=== PATIENT | male | born 1955 | race Asian ===

== ENCOUNTER 2019-12-21 07:23 | Day surgery (SDC) | payer OTHER ==
[~2019-12-21 07:23] MED LIST: CYCLOPENTOLATE 1% OPHTH DROPS 2 ML ONE; KETOROLAC 0.45% OPHTH DROPS ONE; PHENYLEPHRINE 2.5% OPHTH 2 ML DROPS ONE; PROPARACAINE 0.5% OPHTH DROPS 15 ML ONE
[2019-12-21] MEDS ORDERED: MIDAZOLAM 2 MG/2 ML VIAL IVP ONE (07:24)
[2019-12-21] MEDS ORDERED: TRIAMCIN/MOXIFLOX OPHTHALMIC 0.6 ML VIAL IO ONE (07:46)
[2019-12-21] MEDS ORDERED: BSS/LIDOCAINE/EPINEPHRINE 1 ML SYRINGE ONE (07:46)
[2019-12-21] MEDS ORDERED: TIMOLOL 0.5% OPHTH DROPS ONE (07:46)
[2019-12-21] MEDS ORDERED: BRIMONIDINE 0.2% OPHTH DROPS 5 ML ONE (07:46)
[2019-12-21] MEDS ORDERED: VANCOMYCIN OPHTHALMI 8MG/0.8ML 8 MG/0.8 ML SYRINGE IO ONE (07:47)
[2019-12-21] MEDS ORDERED: LACTATED RINGERS 500 ML IV ONE (08:24)
[2019-12-21] MEDS ORDERED: KETOROLAC 0.45% OPHTH DROPS LEFTEYE ONE (08:32)
[2019-12-21] MEDS ORDERED: PROPARACAINE 0.5% OPHTH DROPS 15 ML LEFTEYE ONE ×2 (08:33→09:15)
[2019-12-21] MEDS ORDERED: PHENYLEPHRINE 2.5% OPHTH 2 ML DROPS LEFTEYE ONE (08:33)
[2019-12-21] MEDS ORDERED: CYCLOPENTOLATE 1% OPHTH DROPS 2 ML LEFTEYE ONE (08:33)
--- NOTE | 2019-12-21 08:54 | ANESTHESIA ---
Pre-Anesthesia VS, & Labs - Diagnosis Left eye senile combined cataract - Procedure Left eye cataract extraction with IOL implant Vital Signs: Temp Pulse Resp BP Pulse Ox 36.4 C L 82 16 133/96 H 96 12/21/19 08:26 12/21/19 08:26 12/21/19 08:26 12/21/19 08:26 12/21/19 08:26 Height 6 ft Weight (kg) 96.8 kg - NPO >8 hours Home Medications and Allergies Home Medications: Ambulatory Orders Losartan [Cozaar] 50 mg PO DAILY 12/20/19 Simvastatin [Zocor] 10 mg PO DAILY 12/20/19 amLODIPine [Norvasc] 5 mg PO DAILY 12/20/19 Losartan [Cozaar] 50 mg PO DAILY 12/20/19 Simvastatin [Zocor] 10 mg PO DAILY 12/20/19 amLODIPine [Norvasc] 5 mg PO DAILY 12/20/19 Allergies/Adverse Reactions: Allergies Allergy/AdvReac Type Severity Reaction Status Date / Time No Known Drug Allergies Allergy Verified 12/20/19 12:55 Anes History & Medical History - Anesthetic History Anesthesia Complications: reports: No previous complications - Medical History Cardiovascular: reports: Hypertension, High cholesterol Pulmonary: reports: Asthma (Last use was over 1 year ago) Gastrointestinal: reports: None Urinary: reports: None Neuro: reports: None Musculoskeletal: reports: Gout Endocrine/Autoimmune: reports: None Blood Disorders: reports: None Skin: reports: None Smoking Status: Former smoker (quit 1990) Psychosocial: reports: Alcohol (Regularly drinks beer) - Surgical History General: Colonoscopy Orthopedic: Other Exam General: Alert, Oriented x3, Cooperative, No acute distress Dental: WNL Mouth Openin Fingerbreadth Neck Mobility: Normal Mallampati classification: I Thyromental Distance: greater than 6 cm Respiratory: Lungs clear, Normal breath sounds, No respiratory distress, No accessory muscle use Cardiovascular: Regular rate, Normal S1, Normal S2, No murmurs Mental/Cognitive Status: Alert/Oriented X3, Normal for patient Plan Anesthesia Type: MAC Consent for Procedure(s) Verified and Reviewed: Yes Code Status: Attempt Resuscitation ASA classification: 2-Mild systemic disease Is this case an emergency?: No
[2019-12-21] MEDS ORDERED: EPINEPHrine 1 MG/ML AMP IVP ONE (09:14)
[2019-12-21] MEDS ORDERED: CHONDR SULF/HYALURONATE SYRINGE IO ONE (09:14)
[2019-12-21] MEDS ORDERED: BSS/LIDOCAINE/EPINEPHRINE 1 ML SYRINGE IO ONE (09:14)
[2019-12-21] MEDS ORDERED: TIMOLOL 0.5% OPHTH DROPS OPTH ONE (09:14)
[2019-12-21] MEDS ORDERED: BRIMONIDINE 0.2% OPHTH DROPS 5 ML OPTH ONE (09:14)
--- NOTE | 2019-12-21 10:05 | OPERATIVE REPORT ---
DATE OF SERVICE: 12/21/2019 Physician: Jean Hill MD PREOPERATIVE DIAGNOSIS: Visually significant cataract, left eye. This was his first cataract surger y. POSTOPERATIVE DIAGNOSIS: Visually significant cataract, left eye. This was his first cataract surge ry. DESCRIPTION OF PROCEDURE: Phacoemulsification with posterior chamber intraocular lens implant, left eye. SURGEON: Jean Hill MD ANESTHESIA: Monitored anesthesia care. COMPLICATIONS: None. OPERATIVE INDICATIONS: This is a 64-year-old man with progressive vision loss in the left eye due to 2+ nuclear sclerotic, 2+ cortical and 2+ posterior subcapsular cataract. Best corrected visual acui ty was 20/30, with glare to hand motion vision in the left eye. Indications for surgery were overall decrease in vision, difficulty seeing words on a computer screen, difficulty reading, difficulty see ing words, closed caption or game scores on TV, difficulty driving in low light or at night, difficul ty driving at night because of headlights from other vehicles, difficulty with glare or bright lights in any situation, and decreased acuity with firearms. He was consented at length concerning risks a nd benefits of cataract surgery, after which he expressed a desire to proceed with surgery. OPERATIVE PROCEDURE: Patient was taken to OR #3 and placed under monitored anesthesia care. A surgi hannah timeout was conducted confirming correct patient, correct procedure, and correct surgical site. He was given topical anesthesia, then prepped and draped in the usual sterile fashion. The eye was e ntered at the 6 and 3 o'clock positions. Intracameral Shugarcaine was injected into the anterior eva mber, followed by Viscoat. A continuous-tear curvilinear capsulorrhexis was performed. The nucleus was hydrodissected and phacoemulsified. The cortex was evacuated using automated infusion and aspira tion. Provisc was injected in the capsular bag, and a 22.0 diopter intraocular lens inserted in the bag. Infusion and aspiration was used to evacuate the viscoelastic materials. The eye was inflated to physiologic pressure using balanced salt solution and found to be watertight. Approximately 0.25 mL of a mixture of triamcinolone, moxifloxacin was injected transsclerally into the vitreous in the i nferotemporal quadrant. An additional 0.55 mL of a mixture of triamcinolone, moxifloxacin and vancom ycin was injected subconjunctivally in the superior quadrant for infection and inflammation prophylax is. Wound integrity was checked with Weck-Tia sponges. Patient was taken from the operating room in good condition and given postoperative instructions. TD: 12/21/2019 09:34
[2019-12-21 10:09] VITALS: BP 116/73
== END 2019-12-21 07:24 | disposition home or self-care (01) ==
LOC: SDS 07:23
PROVIDERS: ATTEND Ophthalmology
PROC: 08RK3JZ Replacement of Left Lens with Synthetic Substitute, Percutaneous Approach (ICD-10-PCS; principal; 2019-12-21 09:30)
DX: H25.812 Combined forms of age-related cataract, left eye (principal); I10 Essential (primary) hypertension; Z79.899 Other long term (current) drug therapy; Z87.891 Personal history of nicotine dependence; Z87.09 Personal history of other diseases of the respiratory system
CPT/HCPCS: 66984; A9270; J3490; V2632

== ENCOUNTER 2020-01-18 09:10 | Day surgery (SDC) | payer OTHER ==
[~2020-01-18 09:10] MED LIST changes: +BRIMONIDINE 0.2% OPHTH DROPS 5 ML ONE; +BSS/LIDOCAINE/EPINEPHRINE 1 ML SYRINGE ONE; +TRIAMCIN/MOXIFLOX OPHTHALMIC 0.6 ML VIAL IO ONE; +VANCOMYCIN OPHTHALMI 8MG/0.8ML 8 MG/0.8 ML SYRINGE IO ONE; +timoloL maleate 0.5% OPHTH DROPS (10ML) ONE
[2020-01-18] MEDS ORDERED: fentaNYL 100 MCG/2 ML VIAL IVP ONE (09:11)
[2020-01-18] MEDS ORDERED: MIDAZOLAM 2 MG/2 ML VIAL IVP ONE (09:11)
[2020-01-18] MEDS ORDERED: PROPARACAINE 0.5% OPHTH DROPS 15 ML RIGHTEYE ONE ×2 (09:52→11:01)
[2020-01-18] MEDS ORDERED: KETOROLAC 0.45% OPHTH DROPS RIGHTEYE ONE (09:52)
[2020-01-18] MEDS ORDERED: CYCLOPENTOLATE 1% OPHTH DROPS 2 ML RIGHTEYE ONE (09:53)
[2020-01-18] MEDS ORDERED: PHENYLEPHRINE 2.5% OPHTH 2 ML DROPS RIGHTEYE ONE (09:53)
[2020-01-18] MEDS ORDERED: LACTATED RINGERS 500 ML IV ONE (10:01)
[2020-01-18] MEDS ORDERED: LACTATED RINGERS 1,000 ML IV ONE (10:01)
--- NOTE | 2020-01-18 10:04 | ANESTHESIA ---
Pre-Anesthesia VS, & Labs - Diagnosis right eye cataract - Procedure right eye cataract removal Vital Signs: Temp Pulse Resp BP Pulse Ox 36.8 C 75 18 138/83 H 100 01/18/20 09:50 01/18/20 09:50 01/18/20 09:50 01/18/20 09:50 01/18/20 09:50 Height 6 ft Weight (kg) 95 kg Home Medications and Allergies Losartan [Cozaar] 50 mg PO DAILY 12/20/19 Simvastatin [Zocor] 10 mg PO DAILY 12/20/19 amLODIPine [Norvasc] 5 mg PO DAILY 12/20/19 Allergies/Adverse Reactions: Allergies Allergy/AdvReac Type Severity Reaction Status Date / Time No Known Drug Allergies Allergy Verified 01/17/20 14:24 Anes History & Medical History - Anesthetic History Anesthesia Complications: reports: No previous complications Family history of Anesthesia Complications: Denies Family history of Malignant Hyperthermia: Denies - Medical History Cardiovascular: reports: Hypertension, High cholesterol Pulmonary: reports: Asthma (seasonal) Gastrointestinal: reports: None Urinary: reports: None Neuro: reports: None Musculoskeletal: reports: Gout Endocrine/Autoimmune: reports: None Blood Disorders: reports: None Skin: reports: None Smoking Status: Former smoker (quit 1990) Psychosocial: reports: No issues indicated - Surgical History General: Colonoscopy Eyes Ears Nose Throat (EENT): Cataracts Orthopedic: Other Exam General: Alert, Oriented x3, Cooperative, No acute distress Mouth Openin Fingerbreadth Neck Mobility: Normal Mallampati classification: I Thyromental Distance: greater than 6 cm Respiratory: Lungs clear, Normal breath sounds, No respiratory distress, No accessory muscle use Cardiovascular: Regular rate, Normal S1, Normal S2, No murmurs Abdomen: Normal bowel sounds, Soft, No tenderness, No hepatospenomegaly, No masses Extremities: No clubbing, No cyanosis, No edema, Normal pulses, No tenderness/swelling Neurological: Normal gait, Normal speech, Strength at 5/5 X4 ext, Normal tone, Sensation intact, Cranial nerves 3-12 NL, Reflexes 2+ Mental/Cognitive Status: Alert/Oriented X3, Normal for patient Cognitive Status: Within normal limits Plan Anesthesia Type: MAC Consent for Procedure(s) Verified and Reviewed: Yes Code Status: Attempt Resuscitation ASA classification: 2-Mild systemic disease Is this case an emergency?: No
[2020-01-18] MEDS ORDERED: BRIMONIDINE 0.2% OPHTH DROPS 5 ML OPTH ONE (11:00)
[2020-01-18] MEDS ORDERED: TIMOLOL 0.5% OPHTH DROPS OPTH ONE (11:00)
[2020-01-18] MEDS ORDERED: CHONDR SULF/HYALURONATE SYRINGE IO ONE (11:00)
[2020-01-18] MEDS ORDERED: EPINEPHrine 1 MG/ML AMP IVP ONE (11:00)
[2020-01-18] MEDS ORDERED: BSS/LIDOCAINE/EPINEPHRINE 1 ML SYRINGE IO ONE (11:01)
[2020-01-18] MEDS ORDERED: VANCOMYCIN OPHTHALMI 8MG/0.8ML 8 MG/0.8 ML SYRINGE IO ONE (11:01)
[2020-01-18] MEDS ORDERED: TRIAMCIN/MOXIFLOX OPHTHALMIC 0.6 ML VIAL IO ONE (11:01)
[2020-01-18 11:24] VITALS: BP 121/70
--- NOTE | 2020-01-18 12:07 | OPERATIVE REPORT ---
DATE OF SERVICE: 01/18/2020 Physician: Jean Hill MD PREOPERATIVE DIAGNOSIS: Visually significant cataract, right eye. Cataract surgery was performed on the left eye on 12/21/2019. POSTOPERATIVE DIAGNOSIS: Visually significant cataract, right eye. Cataract surgery was performed on the left eye on 12/21/2019. PROCEDURE: Phacoemulsification with a posterior chamber intraocular lens implant, right eye. SURGEON: Jena Hill MD ANESTHESIA: Monitored anesthesia care. COMPLICATIONS: None. OPERATIVE INDICATIONS: This is a 64-year-old man with progressive vision loss in the right eye due to 2+ nuclear sclerotic, 2+ cortical and 2+ posterior subcapsular cataract. Best corrected visual acuity was 20/30, with glare to hand motion vision in the right eye. Indications for surgery are overall decrease in vision, difficulty seeing words on a computer screen, difficulty reading; difficulty seeing words, closed caption or game scores on TV, difficulty seeing street signs, difficulty driving in low light or at night, difficulty driving at night because of headlights from other vehicles, difficulty with glare or bright lights in any situation, difficulty tracking a golf ball and decreased acuity with firearms. He was consented at length concerning risks and benefits of cataract surgery, after which he expressed a desire to proceed with surgery. OPERATIVE PROCEDURE: The patient was taken into OR #3 and placed under monitored anesthesia care. A surgical timeout was conducted confirming correct patient, correct procedure, and correct surgical site. He was given topical anesthesia, and prepped and draped in the usual sterile fashion. The eye was entered at the 12 and 9 o'clock positions. Intracameral Shugarcaine was injected into the anterior chamber, followed by Viscoat. A continuous-tear curvilinear capsulorrhexis was performed. The nucleus was hydrodissected and phacoemulsified. The cortex was evacuated using automated infusion and aspiration. Provisc was injected in the capsular bag and a 20.5 diopter intraocular lens was inserted into the bag. Infusion and Aspiration was used to evacuate the viscoelastic materials. The eye was inflated to physiologic pressure using a balanced salt solution and found to be watertight. Approximately 0.25 mL of a mixture of triamcinolone and moxifloxacin was injected transsclerally into the vitreous in the inferotemporal quadrant. An additional 0.55 mL of a mixture of triamcinolone, moxifloxacin and vancomycin was injected subconjunctivally in the superior quadrant for infection and inflammation prophylaxis. Wound integrity was checked with Weck-yoni sponges. The patient was taken from the operating room in good condition and given postoperative instructions. TD: 01/18/2020 11:11 MTDHarrison
== END 2020-01-18 09:11 | disposition home or self-care (01) ==
LOC: SDS 09:10
PROVIDERS: ATTEND Ophthalmology
DX: H25.811 Combined forms of age-related cataract, right eye (principal); I10 Essential (primary) hypertension; E78.00 Pure hypercholesterolemia, unspecified; Z96.1 Presence of intraocular lens; Z87.891 Personal history of nicotine dependence
CPT/HCPCS: 66984; A9270; J3490; V2632

== ENCOUNTER 2022-07-04 03:18 | Outpatient (CLI) | payer MEDICARE, OTHER | END 2022-07-04 03:19 | disposition critical access hospital (66) | LOC: EMS 03:18 | DX: R42 Dizziness and giddiness (principal); I10 Essential (primary) hypertension; R09.89 Other specified symptoms and signs involving the circulatory and respiratory systems | CPT/HCPCS: A0425; A0427 ==

== ENCOUNTER 2023-08-31 13:28 | Outpatient (CLI) | payer MEDICARE, OTHER ==
--- NOTE | 2023-08-31 15:59 | Ultrasound Report ---
PROCEDURE: Aorta Screening INDICATIONS: AAA SCREENING TECHNIQUE: Real time scanning was performed of the aorta and iliac arteries, with image documentatio n. COMPARISON: None. FINDINGS: Aorta: Proximal aortic diameter measures 2.3 x 2.9 cm. Mid-aorta measures 2.5 x 2.3 cm. Distal aor tic diameter is 2 x 1.6 cm. Iliac arteries: Right common iliac artery measures 1 x 1.1 cm. Left common iliac artery measures 1. 3 x 1.3 cm. IMPRESSION: 1. No abdominal aortic aneurysm. Mid abdominal aorta is borderline ectatic measuring 2.5 x 2.3 cm. Re commend repeat imaging in 5 years. 2. Bilateral common iliac arteries are normal in caliber, where visualized. Recommended intervals for follow-up imaging of ectatic aortas and abdominal aortic aneurysms, per ACR consensus guidelines: 2.5-2.9 cm: 5 years 3.0-3.4 cm: 3 years 3.5-3.9 cm: 2 years 4.0-4.4 cm: 1 year 4.5-4.9 cm: 6 months + endovascular referral 5.0-5.5 cm: 3-6 months + endovascular referral Reviewed by: Christina Monroy MD on 08/31/2023 3:58 PM PDT Approved by: Christina Monroy MD on 08/31/2023 3:58 PM PDT Station ID: [id number]
== END 2023-08-31 13:29 | disposition home or self-care (01) ==
LOC: DI 13:28
PROVIDERS: ATTEND Student in an Organized Health Care Education/Training Program
DX: Z13.6 Encounter for screening for cardiovascular disorders (principal); I77.819 Aortic ectasia, unspecified site